=== PATIENT | female | born 1995 | race Caucasian/White ===

== ENCOUNTER 2017-04-26 11:33 | Emergency (ER) | payer OTHER ==
[2017-04-26 11:38] VITALS: RESP 18; TEMP 98; BMI 25.5
[2017-04-26 12:12] LABS: BASO % 0.5 % (0.0-2.0); EOS # 0.1 K/uL (0.0-0.7); EOS % 1.5 % (0.0-4.0); HEMATOCRIT 37.6 % (34.0-47.0); LYMPH # 1.4 K/uL (1.0-4.3); LYMPH % 21.7 % (20.0-40.0); MEAN CELL VOLUME 89.2 fL (81.0-99.0); MEAN CORPUSCULAR HEMOGLOBIN 29.8 pg (27.0-31.0); MEAN CORPUSCULAR HGB CONC 33.4 g/dL (33.0-37.0); MEAN PLATELET VOLUME 9.2 fL (7.2-11.7); MONO # 0.5 K/uL (0.0-0.8); MONO % 8.2 % (0.0-10.0); RED CELL DISTRIBUTION WIDTH 13.1 % (11.5-14.5); WHITE BLOOD COUNT 6.4 K/uL (4.8-10.8)
--- NOTE | 2017-04-26 12:26 | C.PDOC ---
History Of Present Illness 21 y/o female no pmhx presents to the ED with complains of heavy vaginal bleeding for the past month with clots. Pt is concerned as she has been feeling slightly weaker for the past month. Pt also reports associated suprapubic/ pelvic pain. Denies dysuria, vomiting, diarrhea, back pain, fever, dizziness or any other complaints. No PSHx. Time Seen by Provider: 04/26/17 11:47 Chief Complaint (Nursing): Female Genitourinary History Per: Patient History/Exam Limitations: no limitations Onset/Duration Of Symptoms: Days, Persistent Current Symptoms Are (Timing): Still Present Severity: Moderate Quality Of Discomfort: Cramping Associated Symptoms: denies: Fever, Nausea, Vomiting, Diarrhea, Back Pain, Urinary Symptoms Alleviating Factors: None Recent travel outside of the [place]: No Abnormal Vaginal Bleeding: Yes Past Medical History Reviewed: Historical Data, Nursing Documentation, Vital Signs Vital Signs: Last Vital Signs Temp 98 F 04/26/17 11:38 Pulse 72 04/26/17 14:04 Resp 18 04/26/17 14:04 BP 120/70 04/26/17 14:04 Pulse Ox 98 04/26/17 14:04 - Medical History PMH: No Chronic Diseases Surgical History: No Surg Hx Family History: States: No Known Family Hx - Social History Hx Tobacco Use: No Hx Alcohol Use: No Hx Substance Use: No - Immunization History Hx Influenza Vaccination: No Hx Pneumococcal Vaccination: No Review Of Systems Except As Marked, All Systems Reviewed And Found Negative. Constitutional: Positive for: Weakness. Negative for: Fever, Chills Gastrointestinal: Negative for: Vomiting, Diarrhea Genitourinary: Positive for: Vaginal Bleeding. Negative for: Dysuria Musculoskeletal: Negative for: Back Pain Neurological: Negative for: Dizziness Physical Exam - Physical Exam Appears: Non-toxic, No Acute Distress Skin: Warm, Dry, No Rash Head: Atraumatic, Normacephalic Eye(s): bilateral: Normal Inspection, PERRL, EOMI Oral Mucosa: Moist Neck: Normal ROM, Supple Chest: Symmetrical Cardiovascular: Rhythm Regular, No Murmur Respiratory: Normal Breath Sounds, No Rales, No Rhonchi, No Wheezing Gastrointestinal/Abdominal: Normal Exam, Soft, No Tenderness, No Guarding, No Rebound Pelvic: Normal External Exam, Normal Bimanual Exam, Vaginal Bleeding (Moderate) , No Vaginal Discharge, No Cervical Motion Tenderness, No Adnexal Tenderness, 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 Dictator : Iveth Lomax MD. Hand Compositor : Shoer : Iveth Lomax MD. Approver2 : Report Date : 2016 13:48:36. My Comment : . HISTORY: vag bleed x 1mon, neg pregna, pelvic pain. COMPARISON: None available. TECHNIQUE: Transabdominal and transvaginal pelvic ultrasound was performed. FINDINGS: UTERUS: Measures 7.0 x 3.1 x 3.5 cm. Anteverted, normal in size and appearance. There is normal myometrial echotexture without fibroid or other mass lesion seen. ENDOMETRIUM: Measures 6.0 mm in diameter. Unremarkable. CERVIX: There is small amount of fluid in the endocervical canal. RIGHT OVARY: Measures 3.0 x 2.1 x 3.3 cm. No solid mass. Normal flow. LEFT OVARY: Measures 3.6 x 2.6 x 3.4 cm. No solid mass. Normal flow. FREE FLUID: No significant free fluid noted. OTHER FINDINGS: None. IMPRESSION: Small amount of fluid in the endocervical canal. No sonographic abnormality in the uterus, endometrium or ovaries. Medical Decision Making Medical Decision Making: Differential: ruptured ovarian cyst, ectopic, fibroid uterus, anemia urine was negative. Pelvic exam was negative hemoglobin is normal, and ultrasound is negative. On re-exam, the patient reports improvement of symptoms. Lungs are CTA, heart is RRR, abdomen is soft, non-tender and patient is tolerating PO well. Ambulatory in the ED with steady. Follow up with the OBGYN within 1-2 days. Return if worsened. Disposition Counseled Patient/Family Regarding: Studies Performed, Diagnosis, Need For Followup - Disposition Referrals: [facility] [Outside] [facility] [Outside] Disposition: HOME/ ROUTINE Disposition Time: 13:56 Condition: GOOD Additional Instructions: Follow up with the OBGYN for the vaginal bleeding. Return if worsened. 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 - Scribe Statement The provider has reviewed the documentation as recorded by the Saida Sifuentes All medical record entries made by the Saida were at my direction and personally dictated by me. I have reviewed the chart and agree that the record accurately reflects my personal performance of the history, physical exam, medical decision making, and the department course for this patient. I have also personally directed, reviewed, and agree with the discharge instructions and disposition.
[2017-04-26 12:28] LABS: CHLORIDE 101 mmol/L (98-107)
[2017-04-26 12:29] LABS: POTASSIUM 4.1 mmol/L (3.6-5.2); SODIUM 136 mmol/L (132-148)
[2017-04-26 12:31] LABS: CARBON DIOXIDE 27 mmol/L (22-30); GFR AFRICAN-AMERICAN > 60
[2017-04-26 12:32] LABS: BLOOD UREA NITROGEN 9 mg/dL (7-17); GLUCOSE,RANDOM 89 mg/dL (65-105)
[2017-04-26 12:33] LABS: RBC URINE 304 /hpf (0-3); URINE BACTERIA RARE (<OCC); URINE BILIRUBIN NEGATIVE (NEGATIVE); URINE BLOOD 3+ (NEGATIVE); URINE COLOR Yellow (YELLOW); URINE GLUCOSE (UA) NORMAL (Normal); URINE KETONE NEGATIVE (NEGATIVE); URINE LEUKOCYTE ESTERASE TRACE Leu/uL (Negative); URINE PROTEIN NEGATIVE (NEGATIVE); URINE UROBILINOGEN NORMAL mg/dL (0.2-1.0); WBC URINE 6 /hpf (0-5)
--- NOTE | 2017-04-26 13:50 | US ---
HISTORY: vag bleed x 1mon, neg pregna, pelvic pain COMPARISON: None available. TECHNIQUE: Transabdominal and transvaginal pelvic ultrasound was performed. FINDINGS: UTERUS: Measures 7.0 x 3.1 x 3.5 cm. Anteverted, normal in size and appearance. There is normal myometrial echotexture without fibroid or other mass lesion seen. ENDOMETRIUM: Measures 6.0 mm in diameter. Unremarkable. CERVIX: There is small amount of fluid in the endocervical canal. RIGHT OVARY: Measures 3.0 x 2.1 x 3.3 cm. No solid mass. Normal flow. LEFT OVARY: Measures 3.6 x 2.6 x 3.4 cm. No solid mass. Normal flow. FREE FLUID: No significant free fluid noted. OTHER FINDINGS: None. IMPRESSION: Small amount of fluid in the endocervical canal. No sonographic abnormality in the uterus, endometrium or ovaries.
[2017-04-26 14:05] VITALS: BP 120/70; PULSE 72
[2017-04-26 21:06] VITALS: O2SAT 100
== END 2017-04-26 14:06 | disposition home or self-care (01) ==
LOC: C.ER 11:33 → SUPCPDRO 11:33 → C.ER 14:06
DX: N92.1 Excessive and frequent menstruation with irregular cycle (principal)

== ENCOUNTER 2017-05-21 07:32 | Emergency (ER) | payer OTHER ==
[2017-05-21 07:32] VITALS: BMI 25.5
[2017-05-21 07:39] VITALS: TEMP 98.3
[2017-05-21 08:31] LABS: RBC URINE 2 /hpf (0-3); URINE BACTERIA RARE (<OCC); URINE BILIRUBIN NEGATIVE (NEGATIVE); URINE BLOOD 2+ (NEGATIVE); URINE COLOR Colorless (YELLOW); URINE GLUCOSE (UA) NORMAL (Normal); URINE KETONE NEGATIVE (NEGATIVE); URINE LEUKOCYTE ESTERASE 1+ Leu/uL (Negative); URINE PROTEIN NEGATIVE (NEGATIVE); URINE UROBILINOGEN NORMAL mg/dL (0.2-1.0); WBC URINE 13 /hpf (0-5)
--- NOTE | 2017-05-21 08:39 | C.PDOC ---
History Of Present Illness 21-year-old female, presents to the emergency department with complaints of dysuria since yesterday, that is associated with pelvic pain and a burning sensation in the suprapubic area. Denies nausea/vomiting, back pain, vaginal bleeding/discharge, or any other associated symptoms. No other complaints, Time Seen by Provider: 05/21/17 08:03 Chief Complaint (Nursing): Female Genitourinary History Per: Patient History/Exam Limitations: no limitations Onset/Duration Of Symptoms: Days Current Symptoms Are (Timing): Still Present Severity: Moderate Past Medical History Reviewed: Historical Data, Nursing Documentation, Vital Signs Vital Signs: Last Vital Signs Temp 98.3 F 05/21/17 07:36 Pulse 89 05/21/17 08:49 Resp 18 05/21/17 08:49 BP 105/71 05/21/17 08:49 Pulse Ox 99 05/21/17 08:49 Family History: States: No Known Family Hx - Social History Hx Tobacco Use: No Hx Alcohol Use: No Hx Substance Use: No - Immunization History Hx Tetanus Toxoid Vaccination: No Hx Influenza Vaccination: No Hx Pneumococcal Vaccination: No Review Of Systems Except As Marked, All Systems Reviewed And Found Negative. Constitutional: Negative for: Fever, Chills Respiratory: Negative for: Shortness of Breath Gastrointestinal: Negative for: Nausea, Vomiting Genitourinary: Positive for: Dysuria, Pelvic Pain. Negative for: Vaginal Discharge, Vaginal Bleeding Skin: Negative for: Rash Neurological: Negative for: Weakness, Numbness Physical Exam - Physical Exam Appears: Non-toxic, No Acute Distress Skin: Warm, Dry, No Rash Head: Atraumatic, Normacephalic Eye(s): bilateral: Normal Inspection Nose: Normal Oral Mucosa: Moist Lips: Normal Appearing Neck: Normal ROM Chest: Symmetrical Cardiovascular: Rhythm Regular Respiratory: Normal Breath Sounds, No Accessory Muscle Use Gastrointestinal/Abdominal: Soft, Tenderness (Mild, suprapubic), No Guarding, No Rebound Pelvic: Other (erythematous vesicles to labia majora) Extremity: Bilateral: Atraumatic, Normal Color And Temperature, Normal ROM Neurological/Psych: Oriented x3, Normal Speech Gait: Steady ED Course And Treatment O2 Sat by Pulse Oximetry: 98 (room air) Pulse Ox Interpretation: Normal Medical Decision Making Medical Decision Making: Impression 21y/o F, comes in w/ suprapubic pain and dysuria Diff Dx (includes but not limited to) UTI vs Herpes Plan: * Urine Culture * UA/HCG * Reassess and Discharge Disposition Counseled Patient/Family Regarding: Need For Followup, Rx Given - Disposition Disposition: HOME/ ROUTINE Disposition Time: 08:38 Condition: STABLE Additional Instructions: Manlius los medicamentos segn lo prescrito Seguimiento en la clnica para evaristo evaluacin posterior Prescriptions: Acyclovir [Zovirax] 400 mg PO TID #30 tab Ciprofloxacin [Cipro] 1 tab PO BID #14 tab Instructions: Genital Herpes Simplex (ED), Urinary Tract Infection in Women (ED ) Print Language: LAO - POA Present On Arrival: None - Clinical Impression Clinical Impression: Genital herpes, UTI (urinary tract infection) - Scribe Statement The provider has reviewed the documentation as recorded by the Scribe (Lily Gunter) All medical record entries made by the Scribe were at my direction and personally dictated by me. I have reviewed the chart and agree that the record accurately reflects my personal performance of the history, physical exam, medical decision making, and the department course for this patient. I have also personally directed, reviewed, and agree with the discharge instructions and disposition.
[2017-05-21 08:52] VITALS: BP 105/71; PULSE 89; RESP 18
[2017-05-21 10:57] VITALS: O2SAT 98
== END 2017-05-21 08:52 | disposition home or self-care (01) ==
LOC: C.ER 07:32
DX: N39.0 Urinary tract infection, site not specified (principal); A60.09 Herpesviral infection of other urogenital tract

== ENCOUNTER 2017-10-26 08:16 | Emergency (ER) | payer OTHER ==
[2017-10-26 08:17] VITALS: BMI 25.5
[2017-10-26 08:23] VITALS: O2SAT 99
[2017-10-26] MEDS ORDERED: cefTRIAXone (Rocephin) 250 mg Inj IM STA (09:12)
--- NOTE | 2017-10-26 09:16 | C.PDOC ---
History Of Present Illness 22 y/o female presents to ED with complaints of vaginal irritation and vaginal discharge for 2 days. Patient deneis fever, chills, nausea, vaginal bleeding, back pain, dysuria or any other complaints at this time. Time Seen by Provider: 10/26/17 08:18 Chief Complaint (Nursing): Female Genitourinary History Per: Patient History/Exam Limitations: no limitations Onset/Duration Of Symptoms: Days Current Symptoms Are (Timing): Still Present Severity: Mild Quality Of Discomfort: Burning Recent travel outside of the [place]: No Abnormal Vaginal Bleeding: No Past Medical History Reviewed: Historical Data, Nursing Documentation, Vital Signs Vital Signs: Last Vital Signs Temp 98.2 F 10/26/17 10:25 Pulse 79 10/26/17 10:25 Resp 16 10/26/17 10:25 BP 110/69 10/26/17 10:25 Pulse Ox 99 10/26/17 10:25 - Medical History PMH: No Chronic Diseases Surgical History: No Surg Hx Family History: States: No Known Family Hx - Social History Hx Tobacco Use: No Hx Alcohol Use: No Hx Substance Use: No - Immunization History Hx Tetanus Toxoid Vaccination: No Hx Influenza Vaccination: No Hx Pneumococcal Vaccination: No Review Of Systems Constitutional: Negative for: Fever, Chills Gastrointestinal: Negative for: Nausea, Vomiting Genitourinary: Positive for: Dysuria, Vaginal Discharge, Other (itching). Negative for: Hematuria, Vaginal Bleeding Skin: Negative for: Rash Neurological: Negative for: Weakness, Numbness Physical Exam - Physical Exam Appears: Well, Non-toxic, No Acute Distress Skin: Normal Color, Warm, Dry, No Rash Head: Atraumatic, Normacephalic Eye(s): bilateral: Normal Inspection Oral Mucosa: Moist Neck: Normal ROM, Supple Cardiovascular: Rhythm Regular Respiratory: Normal Breath Sounds, No Rales, No Rhonchi, No Wheezing Gastrointestinal/Abdominal: Soft, No Tenderness, No Guarding, No Rebound Pelvic: Normal Bimanual Exam, No Vaginal Bleeding, Vaginal Discharge (Thick White), No Cervical Motion Tenderness, Other ((+)erythema around vagina) Extremity: Normal ROM, Capillary Refill (<2 seconds) Neurological/Psych: Oriented x3 Gait: Steady ED Course And Treatment - Laboratory Results Urine POC: Negative O2 Sat by Pulse Oximetry: 99 (RA) Pulse Ox Interpretation: Normal Progress Note: Treated with rocephin and zithromax. On re-evaluation abdomen soft, treated with macrobid PO for UTI Reassessment Condition: Unchanged Medical Decision Making Medical Decision Making: Plan: UA, GC, Rocephin and Azythromycin Disposition Counseled Patient/Family Regarding: Studies Performed, Diagnosis, Need For Followup, Rx Given - Disposition Referrals: [facility] [Outside] [facility] [Outside] Disposition: HOME/ ROUTINE Disposition Time: 10:15 Condition: STABLE Prescriptions: Nitrofurantoin Macrocrystals [Macrobid] 1 cap PO BID #14 cap Terconazole [Terazol 3] 1 applic VAG DAILY #1 tube Instructions: Urinary Tract Infection in Women (ED), Vaginitis (ED) Forms: SOLO (Japanese) Print Language: SINHALA - POA Present On Arrival: None - Clinical Impression Clinical Impression: UTI (urinary tract infection), Vaginitis - PA / STOCKHOLDER / Resident Statement MD/DO has reviewed & agrees with the documentation as recorded. - Scribe Statement The provider has reviewed the documentation as recorded by the Noreenibkarla Gomez All medical record entries made by the Saida were at my direction and personally dictated by me. I have reviewed the chart and agree that the record accurately reflects my personal performance of the history, physical exam, medical decision making, and the department course for this patient. I have also personally directed, reviewed, and agree with the discharge instructions and disposition.
[2017-10-26 10:04] LABS: RBC URINE 8 /hpf (0-3); URINE BACTERIA RARE (<OCC); URINE BILIRUBIN NEGATIVE (NEGATIVE); URINE BLOOD 2+ (NEGATIVE); URINE COLOR Yellow (YELLOW); URINE GLUCOSE (UA) NORMAL (Normal); URINE KETONE NEGATIVE (NEGATIVE); URINE LEUKOCYTE ESTERASE 3+ Leu/uL (Negative); URINE PROTEIN NEGATIVE (NEGATIVE); URINE UROBILINOGEN NORMAL mg/dL (0.2-1.0); WBC URINE 23 /hpf (0-5)
[2017-10-26 10:29] VITALS: BP 110/69; PULSE 79; RESP 16; TEMP 98.2
== END 2017-10-26 10:28 | disposition home or self-care (01) ==
LOC: C.ER 08:16
DX: N39.0 Urinary tract infection, site not specified (principal); N76.0 Acute vaginitis
CPT/HCPCS: 81001; 84703; 87491; 87591; 96372; 99284; J0696

== ENCOUNTER 2018-05-14 18:27 | Emergency (ER) | payer OTHER ==
[2018-05-14 18:27] VITALS: BMI 25.5
[2018-05-14 18:37] VITALS: RESP 18; TEMP 98.5
[2018-05-14 19:31] LABS: HCG,QUALITATIVE URINE POSITIVE (NEGATIVE)
[2018-05-14] MEDS ORDERED: Sodium Chloride 0.9% 1,000 ML IV ONE (19:32)
[2018-05-14] MEDS ORDERED: Sodium Chloride 0.9% 1,000 ML ONE (19:38)
--- NOTE | 2018-05-14 19:40 | C.PDOC ---
History Of Present Illness The patient presents to the ED for evaluation of vaginal bleeding which began last night. Patient reports she had a positive test at home. She notes her bleeding was heavier last night. Patient denies fever, chills. Time Seen by Provider: 05/14/18 19:32 Chief Complaint (Nursing): Female Genitourinary History Per: Patient History/Exam Limitations: no limitations Onset/Duration Of Symptoms: Hrs Current Symptoms Are (Timing): Still Present Severity: None Pain Scale Rating Of: 0 Associated Symptoms: denies: Fever, Chills Alleviating Factors: None Recent travel outside of the [place]: No Additional History Per: Patient Abnormal Vaginal Bleeding: Yes Past Medical History Reviewed: Historical Data, Nursing Documentation, Vital Signs Vital Signs: Last Vital Signs Temp 98.5 F 05/14/18 18:31 Pulse 80 05/14/18 22:18 Resp 18 05/14/18 22:18 BP 110/78 05/14/18 22:18 Pulse Ox 99 05/14/18 22:18 - Medical History PMH: No Chronic Diseases Surgical History: No Surg Hx Family History: States: Unknown Family Hx - Social History Hx Tobacco Use: No Hx Alcohol Use: No Hx Substance Use: No - Immunization History Hx Tetanus Toxoid Vaccination: No Hx Influenza Vaccination: No Hx Pneumococcal Vaccination: No Review Of Systems Constitutional: Negative for: Fever, Chills Cardiovascular: Negative for: Chest Pain, Palpitations Respiratory: Negative for: Cough, Shortness of Breath Gastrointestinal: Negative for: Nausea, Vomiting, Abdominal Pain Genitourinary: Positive for: Vaginal Bleeding. Negative for: Dysuria, Frequency , Hematuria Skin: Negative for: Rash, Lesions, Jaundice, Bruising Neurological: Negative for: Weakness, Numbness Physical Exam - Physical Exam Appears: Non-toxic, No Acute Distress Skin: Warm, Dry Head: Normacephalic Eye(s): bilateral: Normal Inspection Oral Mucosa: Moist Neck: Supple Chest: Symmetrical, No Deformity, No Tenderness Cardiovascular: Rhythm Regular Respiratory: No Rales, No Rhonchi, No Wheezing Gastrointestinal/Abdominal: Soft, No Tenderness, No Guarding, No Rebound Extremity: Normal ROM, Capillary Refill (less than 2 seconds ) Neurological/Psych: Oriented x3 ED Course And Treatment - Laboratory Results Result Diagrams: 05/14/18 19:40 05/14/18 19:40 O2 Sat by Pulse Oximetry: 100 (on RA) Pulse Ox Interpretation: Normal Progress Note: Bloodwork and urinalysis ordered and reviewed. IV Fluids administered. Reevaluation Time: 22:36 Reassessment Condition: Improved Disposition Counseled Patient/Family Regarding: Studies Performed, Diagnosis, Need For Followup - Disposition Referrals: [facility] [place] [Outside] [facility] [Outside] Disposition: HOME/ ROUTINE Disposition Time: 20:00 Condition: FAIR Additional Instructions: Por favor devuelva en 7-10 cordoba para repetir el anlisis de ellen ([facility]) Instructions: Threatened Miscarriage (DC), Bleeding With (DC) Forms: J.G. ink (Comoran) Print Language: ARMENIAN - Clinical Impression Clinical Impression: Threatened - Scribe Statement The provider has reviewed the documentation as recorded by the Scribe (Jeni Martinez) Provider Attestation: All medical record entries made by the Scribe were at my direction and personally dictated by me. I have reviewed the chart and agree that the record accurately reflects my personal performance of the history, physical exam, medical decision making, and the department course for this patient. I have also personally directed, reviewed, and agree with the discharge instructions and disposition.
[2018-05-14 19:42] LABS: SQUAMOUS EPITHIAL < 1 /hpf (0-5); URINE BACTERIA OCC (<OCC); URINE BILIRUBIN NEGATIVE (NEGATIVE); URINE BLOOD 2+ (NEGATIVE); URINE CLARITY Clear (Clear); URINE COLOR Colorless (YELLOW); URINE GLUCOSE (UA) NORMAL (Normal); URINE LEUKOCYTE ESTERASE TRACE Leu/uL (Negative); URINE PROTEIN NEGATIVE (NEGATIVE); URINE UROBILINOGEN NORMAL mg/dL (0.2-1.0)
[2018-05-14 19:44] LABS: BASO # 0.1 K/uL (0.0-0.2); BASO % 0.5 % (0.0-2.0); EOS # 0.3 K/uL (0.0-0.7); EOS % 2.5 % (0.0-4.0); HEMOGLOBIN 13.8 g/dL (11.0-16.0); LYMPH # 2.7 K/uL (1.0-4.3); LYMPH % 24.8 % (20.0-40.0); MEAN CELL VOLUME 90.8 fL (81.0-99.0); MEAN CORPUSCULAR HEMOGLOBIN 30.7 pg (27.0-31.0); MEAN CORPUSCULAR HGB CONC 33.8 g/dL (33.0-37.0); MEAN PLATELET VOLUME 9.1 fL (7.2-11.7); MONO # 0.8 K/uL (0.0-0.8); MONO % 7.2 % (0.0-10.0); RBC 4.5 Mil/uL (3.80-5.20)
[2018-05-14 19:47] LABS: WHITE BLOOD COUNT 10.8 K/uL (4.8-10.8)
[2018-05-14 20:00] LABS: ALB/GLOB RATIO 1.5 (1.0-2.1); ALBUMIN 4.7 g/dL (3.5-5.0); ALT/SGPT 30 U/L (9-52); AST/SGOT 29 U/L (14-36); BLOOD UREA NITROGEN 12 mg/dL (7-17); CALCIUM 9.6 mg/dl (8.6-10.4); GFR AFRICAN-AMERICAN > 60; GFR NON-AFRICAN AMERICAN > 60
[2018-05-14 22:18] VITALS: BP 110/78; PULSE 80
[2018-05-14 22:38] VITALS: O2SAT 100
--- NOTE | 2018-05-15 11:00 | US ---
HISTORY: presenting with vaginal bleeding. Beta HCG results: 500. LMP 03/22/2018 COMPARISON: 04/26/2017 pelvic ultrasound TECHNIQUE: Transabdominal, transvaginal. Real -time technique with 2D, duplex and color Doppler. FINDINGS: UTERUS: Measures 3.1 x 3.9 x 6.6 cm. Normal in size and appearance. No fibroid or other mass lesion seen. ENDOMETRIUM: Measures 4.7 mm in diameter. No ultrasound findings to suggest gestational sac, fluid, debris, mass or polyp or other pathologic process within the endometrium. CERVIX: No cervical abnormality identified. RIGHT OVARY: Measures 2.2 x 3 x 3.1 cm. No solid mass. Normal flow. LEFT OVARY: Measures 2.4 x 2.7 x 3.5 cm. No solid mass. Normal flow. FREE FLUID: Trace free fluid identified in the pelvis/cul de sac. OTHER FINDINGS: None. IMPRESSION: No visible intrauterine products of conception. Unremarkable adnexa. No visible ectopic gestation. Concordant results (preliminary interpretation) provided by [facility]. Procedure Completed: 22:05 Preliminary ([facility]) Report: Dictated and Authenticated: 22:41 Final Interpretation: 10:50 May 15, 2018.
== END 2018-05-14 23:04 | disposition home or self-care (01) ==
LOC: C.ER 18:27
DX: O20.0 Threatened abortion (principal); Z3A.00 Weeks of gestation of pregnancy not specified
CPT/HCPCS: 76830; 76856; 80053; 81001; 84702; 84703; 85025; 86850; 86900; 96360; 99284; J7030